=== PATIENT | female | born 1930 | race Caucasian/White ===

== ENCOUNTER 2017-01-11 16:27 | Emergency (ER) | payer OTHER ==
--- NOTE | 2017-01-11 17:52 | PROVIDER DOCUMENTATION ---
HPI-Musculoskeletal Pain/Inj - GENERAL Chief Complaint: Back Pain Stated Complaint: BILA HIP PAIN Time Seen by Provider: 01/11/17 17:13 Source: patient, family - HX OF PRESENT ILLNESS-MUSKULOSKELTAL Nature of Presenting Problem: C/O FALL ON SUNDAY. WAS SEEN BY URGENT CARE WHO DID XRAY OF KNEE AND NOSE WITH NO FX. PRESENTS TODAY WITH C/O "IT FEELS LIKE IT DID WHEN I BROKE MY PELVIS." Quality of Pain: reports: aching Severity in ED: mild Onset/Duration: 4 days ago Timing: still present Modifying Factors: improves with: other (NORCO "HELPS SOME.") Any recent injury?: Yes (FALL) Locality of Occurance: Home Recently seen or treated by another doctor?: Yes (URGENT CARE) - FALL INJURY Location of Pain/Injury: reports: back, pelvis Pain Radiation: reports: no radiation Reason for Fall: reports: tripped Symptoms prior to fall:: reports: none Loss of Consciousness: no loss of consciousness Injury Associated Symptoms: reports: denies symptoms - BACK & NECK PAIN/INJURY Back/Neck Pain Location: reports: T-spine Context / Method of Injury: reports: fall - HIP/PELVIS PAIN/INJURY Hip Pain Location: reports: pelvis (DENIES PAIN TO HIPS AT TIME OF EXAM. C/O PELVIS PAIN) Pain Radiation: reports: no radiation Context / Method of Injury: reports: fall Associated Symptoms: reports: denies symptoms - UPPER EXTREMITY PAIN/INJURY Associated Symptoms: reports: denies symptoms Review of Systems - Adult - REVIEW OF SYSTEMS - ADULT ROS:: ROS per family Constitutional: reports: no symptoms reported Eyes: reports: no symptoms reported Ears, Nose, Mouth & Throat: reports: no symptoms reported Cardiovascular: reports: no symptoms reported Respiratory: reports: no symptoms reported Gastrointestinal: reports: no symptoms reported Genitourinary: reports: no symptoms reported Musculoskeletal: reports: see HPI Integumentary: reports: no symptoms reported Psychiatric: reports: no symptoms reported Endocrine: reports: no symptoms reported Hematologic/Lymphatic: reports: no symptoms reported Allergic/Immunologic: reports: no symptoms reported All Other Systems: Reviewed and Negative Past History - Adult - PAST MEDICAL HISTORY-ADULT Review of Records: reports: Nursing Assessment Review, Medications Reviewed, Social history reviewed & non-contributory. 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, affected eye sight and hearing, right sided), stroke deficits (eye sight and hearing, right side) Endocrine/Immune: reports: thyroid disorder Other Conditions: reports: other cancer (skin) - PRIOR SURGERIES/PROCEDURES Surgical/Procedure History: reports: hysterectomy, orthopedic (extremity) ( rotator cuff repair), other (partial thyroidectomy) - IMMUNIZATION STATUS Childhood Immunizations: UTD Flu Vaccine: UTD - FAMILY HISTORY Family History: reviewed, not pertinent Physical Exam-Injury Related - Physical Exam-Injury Related Initial Vital Signs Reviewed: Yes General Appearance: appears well Immobilization?: negative: backboard, C-collar, applied in ED, applied CONSERVATION OR HERITAGE ARCHITECT Eyes: PERRL/EOMI, pink conjunctivae Head, Ears, Nose, Mouth & Throat: normocephalic/atraumatic, moist mucous membranes Neck: non-tender, full range of motion Respiratory: chest non-tender, lungs clear Cardiovascular: normal peripheral pulses Abdominal Exam: normal bowel sounds, non tender Lymphatic: no adenopathy Back Exam: normal inspection, other (PAIN TO MID T-SPINE) Extremity: normal range of motion, other (PELVIC BONES SLIGHTLY TENDER.) Integumentary: normal color, warm/dry Neurologic: grossly normal Psych/Mental Status: normal mood/affect, normal thought content - Glascow Coma Score Best Eye Response (Kaushal): (4) open spontaneously Best Verbal Response (Recluse): (5) oriented Best Motor Response (Recluse): (6) obeys commands Progress - PLAN OF CARE/RESULTS Progress/Plan/Lab Results: Vital Signs Temp Pulse Resp BP Pulse Ox 01/11/17 16:44 98.1 F 72 18 168/79 98 No Known Allergies Allergy (Verified 01/11/17 17:21) ATORVAstatin [Lipitor] 40 mg PO HS #0 tablet 09/20/16 Hydrocodone/APAP 7.5 mg/325 mg [Labadie-7.5] 1 each PO BID #0 tablet 09/20/16 LISINOpril [Prinivil] 20 mg PO DAILY #0 tablet 09/20/16 Levothyroxine [Synthroid] 88 microgm PO DAILY@07 #0 tablet 09/20/16 Paroxetine [Paxil] 10 mg PO DAILY #0 tablet 09/20/16 Psyllium Husk [Metamucil] 1 each PO DAILY 01/11/17 Laboratory 01/11/17 18:25 Urine Source CLEAN CATCH Urine Color YELLOW Urine Turbidity CLEAR Urine pH 6.5 Ur Specific [place] 1.018 Urine Protein TRACE A Ur Glucose (Stick) NEGATIVE Ur Ketones (Stick) NEGATIVE Urine Blood NEGATIVE Urine Nitrite NEGATIVE Urine Bilirubin NEGATIVE Urobilinogen Dipstick NORMAL Urine Leukocytes NEGATIVE Urine WBC (Auto) <10 Urine RBC (Auto) <10 U Epithel Cells (Auto) <10 Urine Bacteria (Auto) NEGATIVE CT PELVIS W/O NEW FRACTURE. T-SPINE PER DR. LEE NO FRACTURE OR DISPLACEMENT. - XRAY 1 XRAY Study: Thoracic Spine Impression: Normal - CT/MRI 1 CT Study: Pelvis (WNL) Comparison with other Films: no changes Departure - Departure Time of Disposition Order: 20:01 DIAGNOSIS: Bony pelvic pain Back pain Qualifiers: Back pain location: thoracic back pain Chronicity: acute Back pain laterality: bilateral Qualified Code(s): M54.6 - Pain in thoracic spine Disposition: HOME 01 Certified Medical Emergency: Emergent Condition: Stable Additional Instructions: CONTINUE YOUR LORTAB DISCUSSED. USE ICE TO BACK AND PELVIS. FOLLOW UP WITH YOUR PCP FOR FURTHER EVALUATION AND MANAGEMENT. RETURN TO ER FOR ANY WORSENING SYMPTOMS. ED Follow Up Instructions: You have been treated by a care provider in the Emergency Department. These instructions are being provided to you so you can have an understanding of how to care for yourself upon discharge. Upon discharge from the Emergency Department, you are responsible for making arrangements for follow-up care by a physician of your choice. Take all prescribed medications as directed. Return to the Emergency Department immediately for any new or worsening symptoms. You may call the Physician Referral phone number at [phone] to obtain a list of Physicians who are taking new patients.
[2017-01-11 18:33] LABS: URINE CULTURE NEEDED? NO; URINE MICRO REVIEW NEEDED? NO; URINE SOURCE CLEAN CATCH
[2017-01-11 18:45] LABS: BILIRUBIN URINE NEGATIVE (NEGATIVE); BLOOD URINE NEGATIVE (NEGATIVE); COLOR YELLOW; GLUCOSE URINE NEGATIVE (NEGATIVE); LEUKOCYTES URINE NEGATIVE (NEGATIVE); NITRITE URINE NEGATIVE (NEGATIVE); PH URINE 6.5; PROTEIN URINE TRACE mg/dL (NEGATIVE); SP GRAVITY URINE 1.018; TURBIDITY URINE CLEAR (CLEAR); UROBILINOGEN URINE NORMAL (NORMAL)
[2017-01-11 18:48] LABS: UR EPITHELIAL CELLS <10 /HPF (<10); URINE BACTERIA NEGATIVE /HPF; URINE RBC <10 /HPF (<10); URINE WBC <10 /HPF (<10)
[2017-01-11 20:22] VITALS: BP 170/83
--- NOTE | 2017-01-12 07:43 | Diag Imaging Result Document ---
PROCEDURE NAME: PELVIS W/O CONTRAST - 01/11/2017 CT PELVIS: A CT dose reduction protocol was used. COMPARISON: 01/08/2014. FINDINGS: There has been complete healing at the fracture at S1-S2. Stable grade 1 anterolisthesis at L4-L5 with severe disk degeneration. There has been complete healing of the old bilateral pubic ramus fractures. Stable sclerotic degeneration of the sacroiliac joints. IMPRESSION: Extensive chronic changes. No acute process. [facility]
--- NOTE | 2017-01-12 09:34 | Diag Imaging Result Document ---
PROCEDURE NAME: THORACIC SPINE - 01/11/2017 PLAIN RADIOGRAPH OF THE THORACIC SPINE, 3 VIEWS: COMPARISON: None available. FINDINGS: There are very mild endplate degenerative changes at a few thoracic spine levels with tiny ventral marginal osteophytes. The vertebral body heights appear to be maintained. There is no evidence of fracture, subluxation, or intrinsic osseous lesion, otherwise. IMPRESSION: No definite acute osseous abnormality by plain radiograph.
== END 2017-01-11 20:22 | disposition home or self-care (01) ==
LOC: ED 16:27
DX: M54.6 Pain in thoracic spine (principal); M25.552 Pain in left hip; M25.551 Pain in right hip; I25.10 Atherosclerotic heart disease of native coronary artery without angina pectoris; I10 Essential (primary) hypertension; E78.5 Hyperlipidemia, unspecified; I25.2 Old myocardial infarction; E07.9 Disorder of thyroid, unspecified; Z79.899 Other long term (current) drug therapy; I69.398 Other sequelae of cerebral infarction; W01.0XXA Fall on same level from slipping, tripping and stumbling without subsequent striking against object, initial encounter
CPT/HCPCS: 72072; 72192; 81001

== ENCOUNTER 2017-01-23 17:05 | Inpatient (IN) ==
[2017-01-23 17:53] LABS: MANUAL DIFF NEEDED? NO
[2017-01-23 17:55] LABS: ALLEN TEST NO; BE 3.7 mmoll (-3.0-3.0); BLOOD TYPE ARTERIAL; DRAW SITE R BRACHIAL; METHB 1.7 % (0.0-1.5); PCO2(98.6) 43 mmHg (35-45); PO2(98.6) 64 mmHg (60-100); SAMPLE BLOOD; SAO2 95.8 % (95.0-100.0); THB 12.7 g/dL (11.5-17.4); pH(98.6) 7.43 (7.35-7.45)
[2017-01-23 17:56] LABS: MODALITY ROOM AIR
[2017-01-23 18:07] LABS: BASO% 0.5 % (0.0-0.8); EOS% 1.2 % (0.0-10.0); HEMATOCRIT 39.8 % (37.0-47.0); HEMOGLOBIN 12.9 g/dL (12.0-16.0); LYMPH# 1.87 X1000 (1.2-3.4); LYMPH% 23.2 % (20.5-51.1); MCH 29.4 PG (27-31); MCHC 32.4 g/dL (33-37); MCV 90.7 FL (81-99); MONO# 0.64 X1000 (0.11-0.59); MONO% 7.9 % (1.7-9.3); MPV 9.8 FL (7.4-10.4); NEUT% 67.2 % (42.2-75.2); PLT 406 X1000 (130-400); RBC 4.39 XMIL (4.2-5.4)
[2017-01-23 18:15] LABS: AGAP 12; ALBUMIN 3.7 g/dL (3.5-5.0); ALKALINE PHOSPHATASE 147 U/L (32-104); BUN 12 mg/dL (8-22); CALCIUM 9.4 mg/dL (8.8-10.2); CHLORIDE 95 mmol/L (98-107); CK PROFILE 63 U/L (24-173); COSMO 271; GOT 14 U/L (10-30); GPT 12 U/L (10-36); POTASSIUM 3.8 mmol/L (3.5-5.1); SODIUM 134 mmol/L (136-145); TCO2 27 mmol/L (25-35); TOTAL BILIRUBIN 0.21 mg/dL (0.20-1.00); TOTAL PROTEIN 7.1 g/dL (6.3-8.3)
[2017-01-23 18:23] LABS: INR 1.01; PROTIME 10.6 Seconds (9.2-11.7)
[2017-01-23 19:34] LABS: URINE CULTURE NEEDED? NO; URINE MICRO REVIEW NEEDED? NO; URINE SOURCE CATH
[2017-01-23 19:41] LABS: BILIRUBIN URINE NEGATIVE (NEGATIVE); BLOOD URINE NEGATIVE (NEGATIVE); COLOR YELLOW; GLUCOSE URINE NEGATIVE (NEGATIVE); LEUKOCYTES URINE NEGATIVE (NEGATIVE); NITRITE URINE NEGATIVE (NEGATIVE); PH URINE 6.5; PROTEIN URINE NEGATIVE (NEGATIVE); SP GRAVITY URINE 1.015; TURBIDITY URINE CLEAR (CLEAR); UR EPITHELIAL CELLS <10 /HPF (<10); URINE BACTERIA NEGATIVE /HPF; URINE RBC <10 /HPF (<10); URINE WBC <10 /HPF (<10); UROBILINOGEN URINE NORMAL (NORMAL)
[2017-01-23 19:55] LABS: UR AMPHETAMINES QUAL NONE DETECTED (NONE DETECT); UR BARBITUATES QUAL NONE DETECTED (NONE DETECT); UR BENZODIAZEPIN QUAL NONE DETECTED (NONE DETECT); UR CANNABINOIDS QUAL NONE DETECTED (NONE DETECT); UR COCAINE QUAL NONE DETECTED (NONE DETECT); UR METHADONE QUAL NONE DETECTED (NONE DETECT); UR OPIATES QUAL PRESUMPTIVE POSITIVE (NONE DETECT); UR OXYCODONE QUAL NONE DETECTED (NONE DETECT); UR PCP QUAL NONE DETECTED (NONE DETECT)
[2017-01-23] MEDS ORDERED: ASPIRIN PO STA (20:11)
[2017-01-23] MEDS ORDERED: ASPIRIN PO ONE (20:11)
--- NOTE | 2017-01-23 20:52 | PROVIDER DOCUMENTATION ---
This chart was entered by Katrin Lovell Scribe, acting as scribe for Tony Galarza CRNP. HPI-Neurological Disorder - General Chief Complaint: Altered Mental Status Stated Complaint: AMS Time Seen by Provider: 01/23/17 18:45 Source: patient, family Allergies/Adverse Reactions: Patient Allergies Allergy/AdvReac Type Severity Reaction Status Date / Time No Known Allergies Allergy Verified 01/23/17 17:36 Home Medications: Home Medication List Medication Instructions Recorded Confirmed Last Taken Type ATORVAstatin [Lipitor] 40 mg PO HS #0 tablet 09/20/16 01/23/17 01/16/17 07:00 Rx Hydrocodone/APAP 7.5 mg/325 mg 1 each PO BID #0 tablet 09/20/16 01/23/17 07:00 Rx [Novinger-7.5] LISINOpril [Prinivil] 20 mg PO DAILY #0 tablet 09/20/16 01/23/17 01/16/17 07:00 Rx Levothyroxine [Synthroid] 88 microgm PO DAILY@07 #0 tablet 09/20/16 01/23/17 07:00 Rx Paroxetine [Paxil] 10 mg PO DAILY #0 tablet 09/20/16 01/23/17 01/16/17 07:00 Rx Psyllium Husk [Metamucil] 1 each PO DAILY 01/11/17 01/23/17 01/16/17 07:00 History - History of Present Illness-Neuro Nature of Presenting Problem: 86 year old F presents to the ED with a cc of altered mental status. Family states that they found her this afternoon sitting in her chair unkempt which is not normal for her. Family states that she was also talking incoherently and stating that she can not hear nor see. Family states that she had decrease vision due to previous CVAs but was still able to see. Last time family saw pt normal was 1999 last night. Pt is confused and disoriented and does not know day or place but is able to answer other questions appropriately. Severity: reports: moderate Onset/Duration: reports: unsure Timing: reports: still present Approximate time patient was last seen normal?: 20:00 (last night) Character of Altered Mental Status: reports: disoriented, confused Any recent trauma/injury?: reports: none Character of Deficits: reports: vision problem/glaucoma Cognitive Baseline: alert, oriented x3 Gait Baseline: walks without assistance Associated Symptoms: reports: vision changes Similar Symptoms Previously?: No Recently seen or treated by another doctor?: No Review of Systems - Adult - REVIEW OF SYSTEMS - ADULT Constitutional: denies: chills, fever Eyes: reports: other (no vision) Ears, Nose, Mouth & Throat: reports: hearing loss. denies: throat pain, throat swelling Cardiovascular: denies: chest pain, palpitations Respiratory: denies: cough, shortness of breath Gastrointestinal: reports: no symptoms reported Genitourinary: reports: no symptoms reported Musculoskeletal: reports: no symptoms reported Integumentary: reports: no symptoms reported Neurological: denies: dizziness/vertigo, headache/migraines, slurred speech Psychiatric: reports: no symptoms reported Endocrine: reports: no symptoms reported Hematologic/Lymphatic: reports: no symptoms reported Allergic/Immunologic: reports: no symptoms reported All Other Systems: Reviewed and Negative Past History - Adult - PAST MEDICAL HISTORY-ADULT Review of Records: reports: Nursing Assessment Review, Medications Reviewed Major Childhood Illnesses: reports: denies history Cardiovascular: reports: CAD, HTN, hyperlipidemia, [place] Respiratory: reports: denies history Gastrointestinal: reports: denies history Obstetrical/Gynecological: reports: denies history Genitourinary: reports: denies history Musculoskeletal: reports: denies history 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, affected eye sight and hearing, right sided), stroke deficits (eye sight and hearing, right side) Endocrine/Immune: reports: thyroid disorder Other Conditions: reports: other cancer (skin) - PRIOR SURGERIES/PROCEDURES Surgical/Procedure History: reports: hysterectomy, orthopedic (extremity) ( rotator cuff repair), other (partial thyroidectomy) - IMMUNIZATION STATUS Childhood Immunizations: UTD Flu Vaccine: See Nurse Assessment - FAMILY HISTORY Family History: reviewed, not pertinent - SOCIAL HISTORY Smoking: non-smoker Substance Use: none/never Alcohol Use Frequency: never Physical Exam- Neurological - Physical Exam-Neuro Initial Vital Signs Reviewed: Yes General Appearance: alert, other (confused, disoriented, will answer questions appropriately but does not know place or day) Eye Exam: bilateral eye: vision changes (blindness) HENMT: hearing deficit Head Injury: no evidence of injury Respiratory: chest non-tender, lungs clear, normal breath sounds Cardiovascular: normal peripheral pulses, regular rate, rhythm, 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 Exam: hearing deficit (R), hearing deficit (L) Motor/Sensory: no motor deficit, no sensory deficit, no pronator drift Integumentary: normal color, normal turgor, warm/dry Psych/Mental Status: other (confused, disoriented, will answer questions appropriately but does not know place or day) Progress - PLAN OF CARE/RESULTS Progress/Plan/Lab Results: Vital Signs - 8 hr 01/23/17 17:05 Temperature 98.5 F Pulse Rate 64 Respiratory Rate 20 Blood Pressure 145/63 O2 Sat by Pulse Oximetry 96 Laboratory Results - last 24 hr 01/23/17 01/23/17 01/23/17 17:45 17:47 17:47 WBC 8.07 RBC 4.39 Hgb 12.9 Hct 39.8 MCV 90.7 MCH 29.4 MCHC 32.4 L RDW Std Deviation 14.8 H Plt Count 406 H MPV 9.8 Immature Gran % (Auto) 0.0 Neut % (Auto) 67.2 Lymph % (Auto) 23.2 [place] % (Auto) 7.9 Eos % (Auto) 1.2 Baso % (Auto) 0.5 Immature Gran # (Auto) 0.00 Neut # (Auto) 5.42 Lymph # (Auto) 1.87 [place] # (Auto) 0.64 H Eos # (Auto) 0.10 Baso # (Auto) 0.04 PT INR PTT (Actin FS) Specimen Type ARTERIAL Sample Site R BRACHIAL pH 7.43 pCO2 43 pO2 64 HCO3 27.6 H Base Excess 3.7 H Oxyhemoglobin 89.7 L* ABG O2 Sat (Calculated) 16.0 ABG O2 Saturation 95.8 ABG Carboxyhemoglobin 4.60 H ABG Methemoglobin 1.7 H Parsad Test NO A-a O2 Difference 32.0 Total Hemoglobin 12.7 Lactate 1.00 Blood Gas Modality ROOM AIR FiO2 % 21.0 Sodium Potassium Chloride Carbon Dioxide Anion Gap BUN Creatinine Estimated GFR/1.73 m2 BUN/Creatinine Ratio Glucose Calculated Osmolality Calcium Total Bilirubin AST ALT Alkaline Phosphatase Creatine Kinase Troponin T Total Protein Albumin Globulin Albumin/Globulin Ratio Urine Source Urine Color Urine Turbidity Urine pH Ur Specific [place] Urine Protein Ur Glucose (Stick) Ur Ketones (Stick) Urine Blood Urine Nitrite Urine Bilirubin Urobilinogen Dipstick Urine Leukocytes Urine WBC (Auto) Urine RBC (Auto) U Epithel Cells (Auto) Urine Bacteria (Auto) Urine Opiates Screen Ur Oxycodone Screen Ur Methadone, Qual Ur Barbiturates Screen Ur Phencyclidine Scrn Ur Amphetamines Screen U Benzodiazepines Scrn Urine Cocaine Screen U Cannabinoids Screen Plasma/Serum Ethyl Alc 01/23/17 01/23/17 01/23/17 17:47 17:47 17:47 WBC RBC Hgb Hct MCV MCH MCHC RDW Std Deviation Plt Count MPV Immature Gran % (Auto) Neut % (Auto) Lymph % (Auto) [place] % (Auto) Eos % (Auto) Baso % (Auto) Immature Gran # (Auto) Neut # (Auto) Lymph # (Auto) [place] # (Auto) Eos # (Auto) Baso # (Auto) PT 10.6 INR 1.01 PTT (Actin FS) 29.0 Specimen Type Sample Site pH pCO2 pO2 HCO3 Base Excess Oxyhemoglobin ABG O2 Sat (Calculated) ABG O2 Saturation ABG Carboxyhemoglobin ABG Methemoglobin Prasad Test A-a O2 Difference Total Hemoglobin Lactate Blood Gas Modality FiO2 % Sodium 134 L Potassium 3.8 Chloride 95 L Carbon Dioxide 27 Anion Gap 12 BUN 12 Creatinine 0.7 Estimated GFR/1.73 m2 > 60 BUN/Creatinine Ratio 17 Glucose 149 H Calculated Osmolality 271 Calcium 9.4 Total Bilirubin 0.21 AST 14 ALT 12 Alkaline Phosphatase 147 H Creatine Kinase 63 Troponin T < 0.010 Total Protein 7.1 Albumin 3.7 Globulin 3.4 Albumin/Globulin Ratio 1.1 Urine Source Urine Color Urine Turbidity Urine pH Ur Specific [place] Urine Protein Ur Glucose (Stick) Ur Ketones (Stick) Urine Blood Urine Nitrite Urine Bilirubin Urobilinogen Dipstick Urine Leukocytes Urine WBC (Auto) Urine RBC (Auto) U Epithel Cells (Auto) Urine Bacteria (Auto) Urine Opiates Screen Ur Oxycodone Screen Ur Methadone, Qual Ur Barbiturates Screen Ur Phencyclidine Scrn Ur Amphetamines Screen U Benzodiazepines Scrn Urine Cocaine Screen U Cannabinoids Screen Plasma/Serum Ethyl Alc 01/23/17 01/23/17 19:05 19:05 WBC RBC Hgb Hct MCV MCH MCHC RDW Std Deviation Plt Count MPV Immature Gran % (Auto) Neut % (Auto) Lymph % (Auto) [place] % (Auto) Eos % (Auto) Baso % (Auto) Immature Gran # (Auto) Neut # (Auto) Lymph # (Auto) [place] # (Auto) Eos # (Auto) Baso # (Auto) PT INR PTT (Actin FS) Specimen Type Sample Site pH pCO2 pO2 HCO3 Base Excess Oxyhemoglobin ABG O2 Sat (Calculated) ABG O2 Saturation ABG Carboxyhemoglobin ABG Methemoglobin Prasad Test A-a O2 Difference Total Hemoglobin Lactate Blood Gas Modality FiO2 % Sodium Potassium Chloride Carbon Dioxide Anion Gap BUN Creatinine Estimated GFR/1.73 m2 BUN/Creatinine Ratio Glucose Calculated Osmolality Calcium Total Bilirubin AST ALT Alkaline Phosphatase Creatine Kinase Troponin T Total Protein Albumin Globulin Albumin/Globulin Ratio Urine Source CATH Urine Color YELLOW Urine Turbidity CLEAR Urine pH 6.5 Ur Specific [place] 1.015 Urine Protein NEGATIVE Ur Glucose (Stick) NEGATIVE Ur Ketones (Stick) NEGATIVE Urine Blood NEGATIVE Urine Nitrite NEGATIVE Urine Bilirubin NEGATIVE Urobilinogen Dipstick NORMAL Urine Leukocytes NEGATIVE Urine WBC (Auto) <10 Urine RBC (Auto) <10 U Epithel Cells (Auto) <10 Urine Bacteria (Auto) NEGATIVE Urine Opiates Screen PRESUMPTIVE POSITIVE A Ur Oxycodone Screen NONE DETECTED Ur Methadone, Qual NONE DETECTED Ur Barbiturates Screen NONE DETECTED Ur Phencyclidine Scrn NONE DETECTED Ur Amphetamines Screen NONE DETECTED U Benzodiazepines Scrn NONE DETECTED Urine Cocaine Screen NONE DETECTED U Cannabinoids Screen NONE DETECTED Plasma/Serum Ethyl Alc Orders Category Date Time Status Cardiac Monitoring DIRECTED Care 01/23/17 17:38 Active Finger Stick Blood Sugar (ED) DIRECTED Care 01/23/17 17:38 Active Oxygen Therapy- ED Nursing DIRECTED Care 01/23/17 17:38 Active Saline Loc NOW Care 01/23/17 17:38 Active CHEST-PORTABLE [RAD] Stat Exams 01/23/17 17:38 Taken HEAD W/O CONTRAST [CT] Stat Exams 01/23/17 17:39 Taken ABG [RESP] Routine Lab 01/23/17 17:45 Completed ALCOHOL BLOOD Stat Lab 01/23/17 17:47 Completed CBC WITH ELECTRONIC DIFF [HEME] Stat Lab 01/23/17 17:47 Completed CK PROFILE [SP CHEM] Stat Lab 01/23/17 17:47 Completed COMPREHENSIVE METABOLIC PANEL [CHEM] Stat Lab 01/23/17 17:47 Completed LACTATE, PLASMA [CHEM] Stat Lab 01/23/17 19:27 Ordered PROTIME WITH INR [COAG] Stat Lab 01/23/17 17:47 Completed PTT [COAG] Stat Lab 01/23/17 17:47 Completed TROPONIN T Stat Lab 01/23/17 17:47 Completed URINALYSIS W/POSS RFLX CULT [URINALYSIS] Stat Lab 01/23/17 19:05 Completed URINE DRUG SCREEN Stat Lab 01/23/17 19:05 Completed Aspirin Med 01/23/17 20:11 Discontinued 325 mg PO NOW ONE Aspirin Med 01/23/17 20:11 Discontinued 325 mg PO STAT STA Pulse Oximetry Stat Oth 01/23/17 17:38 Active EKG [EKG] Stat Ther 01/23/17 17:38 Ordered Result Diagrams: 01/23/17 17:47 01/23/17 17:47 - EKG 1 Time of EKG reading by physician:: 18:30 EKG Read and Signed by:: Marky Snyder EKG Interpretation (*Must complete 3 of following elements*): Abnormal Rate: 64 Rhythm: NSR QRS: LBB - XRAY 1 XRAY Study: Chest - CT/MRI 1 CT Study: Head Impression: Abnormal (Substantial chronic ischemic changes, including old right occipital infarct; New infarct at left temporal-occipital junction, which may be acute or subacute; No hemorrhage; No mass effect; Mild sphenoid sinusitis noted: Dr. Leong(radiologist)) - CONSULTS/PCP/HOSPITALIST Notification #1 *Consult/PCP/Hospitalist*: Sukumar Time Discussed: 20:21 Consult Disposition: Will see in ED, Admit Departure - Departure Time of Disposition Decision: 20:20 DIAGNOSIS: CVA (cerebral vascular accident) Disposition: ADMITTED INPATIENT 09 Certified Medical Emergency: Emergent Condition: Stable Referrals and Follow-Ups: Mima Maynard CRNP [Primary Care Provider] - Attestation - Physician/ [facility] Attestation Patient care was provided by Advanced Practice Provider:: Yes Advanced Practice Provider:: Tony Galarza Advanced Practice Provider documentation review:: The Mid-level provider documentation, treatment plan and medical decision making was reviewed by the physician who agrees with all treatment and medical decision making by the MLP. - NIH Stroke Scale NIH Type: Initial Evaluation Level of Consciousness: 0-Alert LOC Questions (ask month and age): 2-Both Incorrect LOC Commands (ask to open & close eyes;make a fist, let go): 0-Obeys Both Correctly Best Gaze (horizontal eye movement): 0-Normal Visual (use finger movement, counting or visual threat): 1-Partial Hemianopia Facial Palsy (show teeth or raise eyebrows & close eyes tght: 0-Symmetrical Movement Motor Function-left arm: 0-Normal Motor Function-right arm: 0-Normal Motor Function-left le-Normal Motor Function-right le-Normal Limb Ataxia(knygkd-mphz-prbfam, or heel to munoz): 0-No Ataxia Sensory(pin prick to face,arms,trunk,legs-compare side/side): 0-No Ataxia Best Language(name item/read sentence.Ex-Down to Earth): 0-No Aphasia Dysarthria(Pt read words or say words Ex.Mama,Tip-Top,Thanks: 0-Normal Articulation Extinction and Inattention: 0-Normal This chart was documented by the indicated scribe, (Katrin Lovell, Scribe) and accurately reflects the services I performed and decisions made by me, Tony Galarza CRNP, as attested by the provider's signature.
--- NOTE | 2017-01-23 21:10 | Diag Imaging Result Document ---
PROCEDURE NAME: HEAD W/O CONTRAST - 01/23/2017 STUDY: CT brain without contrast. COMPARISON: Compared to 10/19/2015. No parenchymal hemorrhage. No epidural or subdural hematoma. No subarachnoid hemorrhage. Old right occipital infarct. Prominent microvascular ischemic changes. Likely subacute infarct at the left temporooccipital junction. This was not present on the prior exam. There are several old lacunes. No hydrocephalus. No midline shift. Mucus is found in the left sphenoid sinus. IMPRESSION: 1. No hemorrhage. 2. Acute or subacute infarct at the left temporooccipital junction. 3. Old right occipital infarct with prominent microvascular ischemic changes and scattered old lacunes. 4. Mild left sphenoid sinusitis. A preliminary report was given at 7:01 p.m.
[2017-01-23] MEDS ORDERED: MORPHINE IV ONE (21:17)
[2017-01-23] MEDS ORDERED: APRESOLINE IV PRN (22:35)
[2017-01-23] MEDS ORDERED: ZOFRAN IV PRN (22:35)
[2017-01-23] MEDS: PROTONIX IV SCH (23:02)
[2017-01-23] MEDS: LOVENOX SUBQ SCH (23:05)
[2017-01-23 23:13] LABS: HEMOGLOBIN A1C 6.3 % (4.8-6.0)
--- NOTE | 2017-01-24 03:36 | HISTORY AND PHYSICAL ---
PRIMARY CARE PHYSICIAN: Mima Maynard in [place], [place]. CHIEF COMPLAINT: Stroke-like symptoms. HISTORY OF PRESENT ILLNESS: This is an 86-year-old, female with a past medical history of recurrent stroke according to the family, who was brought to the emergency department because of altered mental status and the family suspecting a stroke. They report last time they had seen her at her baseline was yesterday night. She was able to talk normally and no problems with mental status at all. The family reported that when trying to contact her around 2 p.m. today, because she did not answer the phone, they went to see her. They live close to her and they found her this afternoon sitting in the chair unkempt which is not normal for her according to them. Also, they reported that she was talking incoherently, stating that she cannot hear or see. They report actually that they have a problem with sight secondary to her previous CVA but was able to still see. She has some problems with peripheral vision but at this time, she was complaining that she was not able to see. Patient was confused and disoriented so she was brought to the emergency department here. Report from the ER physician said that this patient was immobile on the right side but upon my examination, she was able to move the right side a little bit, the body, although with some paresis. Patient is going to be admitted to the hospital for further evaluation and treatment. PAST MEDICAL HISTORY: 1. History of stroke x4. 2. Hypertension. 3. Hypothyroidism. 4. History of bilateral pelvic fracture. PAST SURGICAL HISTORY: 1. Thyroidectomy. 2. Hysterectomy. 3. Rotator cuff repair. SOCIAL HISTORY: Patient continues to smoke until now, 1 pack per day. As per family and also previous records, it was documented that this patient was strongly encouraged to stop smoking but she clearly reported that she is not going to even try to stop smoking. Family denies she drinks alcohol or using any illicit drugs. She lives alone and used a walker at home. ALLERGIES: She is not allergic to any medication. REVIEW OF SYSTEMS: It is not possible to obtain because of the mental status of the patient. PHYSICAL EXAMINATION: VITAL SIGNS: Temperature 98.5 degrees, heart rate 64, respiratory rate 20, blood pressure 145/63, O2 saturation 96% on room air. GENERAL: This is a chronically ill appearing and frail, 86-year-old, female lying in bed, in no acute distress. HEENT: Head is normocephalic and atraumatic. Anicteric sclerae and pale conjunctivae. Mucous membranes moist. Pupils equal, round, and reactive to light and accommodation. NECK: Supple. No JVD noted. No carotid bruits. No lymphadenopathy. No thyromegaly. CARDIOVASCULAR: S1 and S2 heard. No murmurs, gallops, or rubs. Regular rate and rhythm. RESPIRATORY: Clear bilaterally to auscultation with some decreased breath sounds. There is no rhonchi or wheezing noted on physical examination. ABDOMEN: Abdomen is soft, a little bit distended but nontender to palpation. Bowel sounds present. No organomegaly. EXTREMITIES: No clubbing, cyanosis, or edema. Peripheral pulses present in both legs. NEUROLOGICAL: Patient is very hard of hearing. She reports that does not see anything at this time. The patient is able to move right side of the body. There is 4/5 motor strength in upper and lower right extremities. The left side is 5/5 in both left upper and lower extremities as well. Gait not assessed. LABORATORY DATA: CBC and BMP are completely unremarkable, as well as urine. UDS is positive for opiates. The head CT showed acute or subacute infarcts in the left temporo-occipital junction with old right occipital infarct with prominent microvascular ischemic changes and scattered old lacunes. ASSESSMENT: 1. Acute temporo-occipital stroke. 2. Hypertension. 3. Hyperlipidemia. 4. Active tobacco abuse. 5. Altered mental status. 6. History of cerebrovascular accident x4. 7. Hypothyroidism. 8. Depression. PLAN: 1. The patient is admitted to the hospital for this new episode of a stroke. I am going to check a lipid panel and also rule out any diabetes on this patient. Blood pressure is high and we are going to allow permissive hypertension for this patient secondary to the stroke. I think definitely the smoking is playing a big role in the history of recurrent strokes and there is a very poor prognosis considering that this patient does not want to quit. To have better visualization of the stroke and to complete the workup, we are going to do an MRI of the brain as well as an MRA of the neck and brain as well, and an echocardiogram too. The patient is going to be started on aspirin. We are going to check a swallow evaluation. Physical therapy will be consulted. Considering that this patient has had 5 strokes, I think this patient is no longer able to live by herself so we have discussed that with the family. We are going to put a consult for social work specialist for prison placement. 2. For hyperlipidemia, we will going to check a lipid panel tomorrow. 3. For hypothyroidism, we are going to check a TSH. 4. For depression, we are going to continue with home medications. 5. Further recommendations to follow according to the clinical situation of the patient. cc: Xu Nickerson MD MTDD
[2017-01-24 06:48] LABS: MANUAL DIFF NEEDED? NO
[2017-01-24 06:54] LABS: BASO% 0.5 % (0.0-0.8); EOS# 0.16 X1000 (0.0-0.7); EOS% 1.5 % (0.0-10.0); HEMATOCRIT 38.7 % (37.0-47.0); HEMOGLOBIN 12.4 g/dL (12.0-16.0); IMM GRAN# 0.02 X1000 (0.0-0.04); IMM GRAN% 0.2 % (0.0-0.5); LYMPH# 2.27 X1000 (1.2-3.4); LYMPH% 21.2 % (20.5-51.1); MCH 29.3 PG (27-31); MCV 91.5 FL (81-99); MONO% 7.5 % (1.7-9.3); MPV 9.7 FL (7.4-10.4); NEUT% 69.1 % (42.2-75.2); PLT 364 X1000 (130-400); RBC 4.23 XMIL (4.2-5.4)
[2017-01-24 07:35] LABS: AGAP 14; BUN 11 mg/dL (8-22); CALCIUM 8.7 mg/dL (8.8-10.2); CHLORIDE 97 mmol/L (98-107); COSMO 267; HDL 34 mg/dL (45-65); LDL 60 mg/dL; POTASSIUM 4.2 mmol/L (3.5-5.1); SODIUM 134 mmol/L (136-145); TCO2 23 mmol/L (25-35); TRIGLYCERIDES 153 mg/dL (35-135); VLDL 31 mg/dL
--- NOTE | 2017-01-24 07:55 | Diag Imaging Result Document ---
PROCEDURE NAME: CHEST-PORTABLE - 01/23/2017 PORTABLE CHEST: COMPARISON: 10/19/2015. FINDINGS: Poor inspiratory effort. The heart is not enlarged. The vessels are not distended. No consolidation. No pleural effusions identified. IMPRESSION: Negative chest.
--- NOTE | 2017-01-24 09:40 | Diag Imaging Result Document ---
PROCEDURE NAME: MRA NECK W/CONT - 01/24/2017 MR ANGIOGRAPHY OF THE NECK. MIP IMAGES WERE OBTAINED. FINDINGS: There is normal filling of the left common carotid artery. No stenosis. Mild stenosis in the proximal internal carotid artery at the bulb of less than 40%. Normal flow in the internal carotid artery. There is normal flow in the right common carotid artery. No stenosis. Mild stenosis in the bulb of less than 40%. No other abnormality to the internal carotid artery. The right vertebral artery is dominant compared to the left. There is flow within both vertebral arteries. Normal basilar artery. IMPRESSION: Mild stenoses within each internal carotid artery bulb of less than 40%.
--- NOTE | 2017-01-24 09:44 | Diag Imaging Result Document ---
PROCEDURE NAME: MRA BRAIN W/O CONTRAST - 01/24/2017 MR ANGIOGRAPHY OF THE BLACKFEET OF [place]. MIP IMAGES WERE OBTAINED. FINDINGS: There is normal flow within each distal internal carotid artery. Normal filling of each anterior cerebral artery and each middle cerebral artery. Artifact versus stenosis in the proximal left middle cerebral artery. No aneurysms. There is normal flow in the basilar artery. Normal filling of each posterior cerebral artery. IMPRESSION: Questionable stenosis in the proximal left middle cerebral artery, but no other abnormality.
--- NOTE | 2017-01-24 09:46 | Diag Imaging Result Document ---
PROCEDURE NAME: MRI BRAIN W W/O CONTRAST - 01/24/2017 MRI OF THE BRAIN WITH AND WITHOUT GADOLINIUM: FINDINGS: There is extensive encephalomalacia in the posterior temporal and occipital lobe on the right. There is abnormal decreased T1 and increased T2-weighted signal intensity in gyri in the posterior temporal lobe on the left side which were not present on 11/27/2014, and which are associated with restricted diffusion consistent with a subacute or acute infarct. There is no evidence of bleed or abnormal extra-axial fluid collection and, otherwise, the appearance of the brain has not changed significantly since the previous study. There is no evidence of abnormal gadolinium enhancement. IMPRESSION: 1. Acute infarct in the left temporal lobe. 2. Chronic ischemic changes elsewhere.
--- NOTE | 2017-01-24 10:44 | CONSULTATION ---
DATE OF CONSULTATION: 01/24/2017 HISTORY OF PRESENT ILLNESS: Mr. Burnette is 86 years old and it looks like she has had another stroke. History from the patient is that she noticed a sudden complete loss of vision yesterday. Her report to me now is that she is not sure there was right-sided weakness then but the emergency room record shows there clearly was right hemiparesis when she presented. She reports no definite recovery of vision today. She had a little bit of a headache but that was never major. She believes there was never altered consciousness or altered awareness. She has extensive past history of stroke. Previous strokes have caused predominantly left hemianopia. She had first stroke event 17 years ago, causing loss of vision to the left. She had subsequent similar episodes. 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 Workup this admission includes brain MRI this morning reported to show evidence of acute left temporal infarction. There is evidence of the old right posterior hemisphere encephalomalacia consistent with her prior stroke events. Vital sign record here shows blood pressure systolic 120s to 170s. Heart rate has ranged 60s to 70s. She has been afebrile. Lab work included urine drug screen positive for opiates, consistent with her home medication list including hydrocodone. She has had mildly elevated blood sugars and A1c is 6.3%. Past history is remarkable for hypertension, dyslipidemia, hypothyroidism, previous strokes as above. She has chronic gait difficulty. On exam, she is awake, alert, attentive. She is quite hard of hearing but communicated with me very well when she could hear and understand me. Speech is very minimally dysarthric but easily understood. Language function is intact on brief bedside testing. I did not test her cognitive function. She reports hand motion vision in the right visual field and no definite vision in the left visual field. She was able to recognize bright light. The pupils react to light, a little bit more briskly on the left. Facial motility is diminished bilaterally. She has good power in the left limbs. Strength is difficult to shredded filler hopper feeder in the right limbs with her limited effort but I could overcome the right deltoid grading 4/5. Tone is equal in the limbs. I did not ask her to stand or walk. Head is unremarkable. Neck is supple without meningismus. IMPRESSION: 1. Sudden onset of right-sided vision loss, mild right hemiparesis, MRI evidence of acute dominant left hemisphere infarction but no definite language deficit. She has risk factors for cerebrovascular ischemic problems as above. Prognosis is limited in light of her age and multiple previous strokes but I believe this may be first definite left hemisphere infarction and with timeframe less than 24 hours now, we can hope for some spontaneous improvement. She has workup in progress. Brain MRA raised the question of left middle cerebral stenosis but that does not appear to be marked. Cervical MRA was not remarkable. Echocardiogram was just completed. I do not have any suggestion for urgent workup or other urgent intervention. We need to treat blood pressure cautiously, treat lipids and blood sugar aggressively, provide deep venous thrombosis prophylaxis, and follow her clinically. 2. Previous strokes with chronic left hemianopia. I do not see any definite change there. 3. Chronic unsteady gait. Loss of vision will certainly make that a bigger problem. 4. I wonder about her baseline level of cognitive function. If that has declined, we might consider cholinesterase inhibitor trial, not urgent. Thanks for asking me to see Ms. Burnette. cc: MD DIMAS Tai III
[2017-01-24] MEDS: NORCO-7.5 PO SCH ×3 (12:05→22:29)
[2017-01-24] MEDS: METAMUCIL PO SCH ×2 (13:03)
[2017-01-24] MEDS: ASPIRIN PO SCH (13:03)
[2017-01-24] MEDS: SYNTHROID PO SCH (13:03)
[2017-01-24] MEDS: PAXIL PO SCH (13:03)
--- NOTE | 2017-01-24 14:27 | PROGRESS NOTE ---
DATE: 01/24/2017 SUBJECTIVE: This patient is resting comfortably on the bed. She has no complaints at this moment. She is sleepy but arousable. She can talk but she is not oriented. She is able to move all 4 extremities. I did not ask her to walk. OBJECTIVE: Vital Signs: Temperature 98.9 degrees, pulse 57, blood pressure 190/81, oxygen saturation 100% on 2 L of nasal cannula. HEENT: Head normocephalic. No trauma. PERRLA. Neck: Supple. No JVD. No masses. Central trachea. Chest: Clear to auscultation. No wheezing. No rales. Cardiovascular: RRR. No murmurs. Abdomen: Soft, nontender, nondistended. No hepatosplenomegaly. Extremities: Generalized weakness. The right side is more weak compared with the left side. Neurological: She is sleepy but arousable. She is not oriented. She moves all 4 extremities. LABORATORY: WBC 10.7, hemoglobin 12.4, hematocrit 38.7, platelets 364,000. Sodium 134, potassium 4.2, chloride 97, bicarbonate 23, BUN 11, creatinine 0.7, glucose 91, calcium 8.7. ASSESSMENT AND PLAN: 1. Acute left temporal lobe infarct. This patient looks stable at this moment. She has had previous strokes and risk factors. Apparently she is still smoking. I am not sure if she wants to quit. For now we are going to focus on her treatment. At home she is on lisinopril to treat the blood pressure. The hemoglobin A1c is 6.3 so she has prediabetes and the lipid panel, the triglyceride is 153, cholesterol 125, LDL 60, HDL 34. The TSH is normal. Since she received IV contrast today I will hold the lisinopril to avoid acute kidney injury but I am going to start this patient on hydralazine. The blood pressure has been around 190. I will continue with the aspirin and I will start this patient on Lipitor. 2. Hypertension. As above. 3. Hyperlipidemia. I will start this patient on Lipitor. 4. Active tobacco abuse. She is on a nicotine patch. I am not quite sure that this patient is going to quit smoking. I highly advised this patient against smoking and I will continue with daily cessation education. 5. Altered mental status. This patient is sleepy but arousable but she is not oriented at this moment. 6. History of cerebrovascular accident x4. 7. Hypothyroidism. Continue with the same management. 8. Depression. Aware. CRITICAL CARE TIME: 35 minutes. cc: Gureo Scott MD
[2017-01-24] MEDS: NS 1,000 ML IV SCH (22:27)
[2017-01-24] MEDS: APRESOLINE PO SCH (22:29)
[2017-01-24] MEDS: SODIUM CHLORIDE 0.9% INJ SCH (22:30)
[2017-01-24] MEDS: PROTONIX IV SCH (22:30)
[2017-01-24] MEDS: LOVENOX SUBQ SCH (22:30)
[2017-01-24] MEDS: LIPITOR PO SCH (22:31)
[2017-01-25 05:16] LABS: MANUAL DIFF NEEDED? NO
[2017-01-25 05:20] LABS: BASO% 0.4 % (0.0-0.8); EOS# 0.12 X1000 (0.0-0.7); EOS% 1.3 % (0.0-10.0); HEMATOCRIT 35.9 % (37.0-47.0); HEMOGLOBIN 11.5 g/dL (12.0-16.0); LYMPH# 2.35 X1000 (1.2-3.4); LYMPH% 26.4 % (20.5-51.1); MCH 29.1 PG (27-31); MCV 90.9 FL (81-99); MONO% 7.9 % (1.7-9.3); PLT 374 X1000 (130-400); RBC 3.95 XMIL (4.2-5.4)
[2017-01-25 05:48] LABS: AGAP 12; BUN 13 mg/dL (8-22); CALCIUM 8.2 mg/dL (8.8-10.2); CHLORIDE 99 mmol/L (98-107); COSMO 274; POTASSIUM 3.9 mmol/L (3.5-5.1); SODIUM 137 mmol/L (136-145); TCO2 26 mmol/L (25-35)
--- NOTE | 2017-01-25 09:01 | ECHO REPORT ---
ORDER DATE: 01/23/2017 INTERPRETING PHYSICIAN: Dr. Leon REQUESTING PHYSICIAN: CLINICAL INDICATIONS: 86-year-old female with recurrent stroke. M-MODE MEASUREMENTS: Right ventricle: 2.0 cm. Left ventricle end diastole: 3.1 cm. Left ventricle end systole: 1.8 cm. Posterior wall: 1.1 cm. Interventricular septum: 1.3 cm. Left atrium: 3.6 cm. Aortic root: 2.9 cm. SUMMARY OF 2-DIMENSIONAL IMAGIN. Left ventricular function is normal. Ejection fraction is estimated at 65%. No wall motion abnormality is noted. 2. Right ventricular function was normal. 3. Mitral valve showed mild degree of regurgitation. 4. Pulse wave Doppler of mitral inflow shows mild reversal of the E and A wave. 5. Tissue Doppler of septal and lateral mitral annulus averages 5 cm. 6. Pulse wave Doppler of pulmonary venous flow is normal. 7. There is impaired left ventricular relaxation. 8. Tricuspid valve looks normal with mild degree of regurgitation. 9. Inferior vena cava is not dilated. 10.Pulmonary pressure is estimated at 32 mmHg. 11.Pulmonic valve looks normal. Color flow mapping unremarkable. 12.Aortic valve looks sclerotic. The maximum gradient is 18 mm, mean gradient is 9 mm. 13.There is no pericardial effusion, masses or thrombus. SUMMARY: In summary, this study shows: 1. Normal left ventricular systolic function. 2. Sclerosis of aortic valve without stenosis. 3. Impaired left ventricular relaxation. 4. Pulmonary systolic pressure 32 mmHg. Clinical correction recommended. cc: MD Xu Dunn MD
--- NOTE | 2017-01-25 09:13 | PROGRESS NOTE ---
DATE: 01/25/2017 Ms. Burnette is awake, alert, attentive. She communicated with me a little bit better today. I believe that she does have some dysphasia, more receptive than expressive. She was not able to count fingers in the right visual field but she did recognize hand motion, a little bit better in the right visual field today than yesterday. She is not able to follow instructions precisely which makes formal motor testing difficult. She used her right arm and leg purposefully. There may be slight right hemiparesis, but I could not document that with certainty. I reviewed the workup results. I do not have any suggestion for new workup or management. Thanks for asking me to see Ms. Burnette. cc: Mu Obando III, MD MTDEverett
--- NOTE | 2017-01-25 09:23 | PROGRESS NOTE ---
DATE: 01/25/2017 SUBJECTIVE: This is an 86-year-old who is followed by Dr. Mima Maynard in [place], [place], with past medical history of recurrent stroke. According to family, was brought to the emergency room department because of altered mental status, and we suspected stroke. Last time they had seen her at her baseline was the day before, was able to talk normally, no problems, with normal mental status. The family reported that when trying to contact her around 2 p.m. on 01/23/2017, because she did not answer the phone, they went to see her. They live close to her. They found her sitting in a chair, unkempt and not normal for her, according to them. Reported that she was talking incoherently, stating that she cannot hear or see. They report actually that they had problem with her eyesight and also with her hearing, but her eyesight was due to a previous CVA, but was able to still see some. She had some problems with peripheral vision, but this time, she was complaining that she was not able to see at all. The patient was confused and disoriented, and she was brought to the emergency room department. Report from the ER physician said that the patient was immobile on the right side, but upon exam later on, she was able to move her right side a little bit, although there was some paresis noted. PAST MEDICAL HISTORY: 1. History of stroke x4. 2. Hypertension. 3. Hypothyroidism. 4. History of bilateral pelvic fractures. PAST SURGICAL HISTORY: Thyroidectomy, hysterectomy, rotator cuff repair. IMAGING: CT of the head showed acute or subacute infarct in the left temporal occipital junction with old right occipital infarct, prominent microvascular ischemic changes, scattered old lacunar. OBJECTIVE: General: This morning, she is awake and alert, asked that I turn the light on, and she says she cannot see very well. She is hard of hearing, but no discomfort. No trouble breathing. Vital signs: Temperature 97.8 degrees, pulse 67, respirations 12, blood pressure 161/62. HEENT: Pupils are equal and round. CVP less than 6 cm. Lungs: Clear in all lung romero. Cardiovascular: Regular rhythm and rate without murmur or S3. Abdomen: Soft. Skin is warm and dry. O2 sat is 96%. Her I's and O's, urine output about 200 mL. ASSESSMENT AND PLAN: 1. Acute left temporal lobe infarct. The patient appears to be doing a little better. She had previous strokes and has multiple risk factors, still smoking. Did discuss the importance of quitting tobacco. She is on lisinopril for blood pressure. Hemoglobin A1c was 6.3, and lipid panel showed triglyceride 153, cholesterol 125, LDL 60, HDL 34. TSH was normal. They held the lisinopril yesterday, and the patient was started on hydralazine. Blood pressure systolic was around 190s. 2. Hypertension. Blood pressures have come down nicely. Do not want to drop her blood pressure too much in this setting. Continue present regimen. 3. Hyperlipidemia. She is started on Lipitor. 4. History of tobacco use, on a nicotine patch, and have counseled her about the importance of stopping smoking. 5. Altered mental status, which seems to have improved. She is oriented at the present time. 6. History of cerebrovascular accident x4, this will be her fifth I think. 7. Hypothyroidism. Continue with her same Synthroid. 8. Depression. Aware. REVIEW OF HER ORDERS: I do not see anything to change at this point. She is on Paxil 10 mg a day. She is taking some Metamucil. She is getting IV fluids at 50 mL an hour, Synthroid 88 mcg daily. She is on hydralazine 10 mg t.i.d., Lipitor 40 mg a day, aspirin 325 mg a day. LABORATORY DATA: Review of her labs from this morning: White count 8910, hematocrit 35, platelet count 374,000. Sodium 137, potassium 3.9, chloride 99, BUN 13, creatinine 0.7, so renal function appears to be doing well. PLAN: Dr. Obando has seen the patient. MRI/MRA of the brain done. She has sudden right-sided vision loss, mid right hemiparesis, MRI evidence of acute dominant left hemisphere infarction with no definite language deficit. She has risk factors for cerebrovascular ischemia, and it looks like we are getting some spontaneous improvement. MRA raised the question of left middle cerebral stenosis, but does not appear to be marked. Cervical MRA was unremarkable. Will review echocardiogram. Treating blood pressure cautiously. cc: Prasad Fontanez MD
[2017-01-25] MEDS: SYNTHROID PO SCH (10:01)
[2017-01-25] MEDS: PAXIL PO SCH (10:01)
[2017-01-25] MEDS: APRESOLINE PO SCH ×3 (10:01→17:27)
[2017-01-25] MEDS: NORCO-7.5 PO SCH ×3 (10:01→17:26)
[2017-01-25] MEDS: METAMUCIL PO SCH ×2 (10:01)
[2017-01-25] MEDS: ASPIRIN PO SCH (10:02)
[2017-01-25] MEDS: NS 1,000 ML IV SCH (15:42)
[2017-01-25] MEDS: SODIUM CHLORIDE 0.9% INJ SCH (20:57)
[2017-01-25] MEDS: PROTONIX IV SCH ×2 (20:57→23:22)
[2017-01-25] MEDS: LOVENOX SUBQ SCH ×2 (20:57→23:22)
[2017-01-25] MEDS: LIPITOR PO SCH (21:16)
[2017-01-26] MEDS: NORCO-7.5 PO SCH ×2 (04:58→13:15)
[2017-01-26 05:34] LABS: MANUAL DIFF NEEDED? NO
[2017-01-26 05:39] LABS: BASO% 0.5 % (0.0-0.8); EOS# 0.13 X1000 (0.0-0.7); EOS% 1.3 % (0.0-10.0); HEMATOCRIT 36.7 % (37.0-47.0); HEMOGLOBIN 11.8 g/dL (12.0-16.0); LYMPH# 1.96 X1000 (1.2-3.4); LYMPH% 18.9 % (20.5-51.1); MCH 29.2 PG (27-31); MCHC 32.2 g/dL (33-37); MCV 90.8 FL (81-99); MONO# 0.75 X1000 (0.11-0.59); MONO% 7.2 % (1.7-9.3); MPV 10.4 FL (7.4-10.4); NEUT% 72.1 % (42.2-75.2); PLT 356 X1000 (130-400); RBC 4.04 XMIL (4.2-5.4)
[2017-01-26 05:56] LABS: AGAP 10; BUN 9 mg/dL (8-22); CALCIUM 8.3 mg/dL (8.8-10.2); CHLORIDE 103 mmol/L (98-107); COSMO 274; POTASSIUM 4.1 mmol/L (3.5-5.1); SODIUM 138 mmol/L (136-145); TCO2 25 mmol/L (25-35)
[2017-01-26] MEDS: SYNTHROID PO SCH (06:29)
[2017-01-26] MEDS: ASPIRIN PO SCH (09:47)
[2017-01-26] MEDS: PAXIL PO SCH (09:47)
[2017-01-26] MEDS: METAMUCIL PO SCH ×2 (09:47)
[2017-01-26] MEDS: APRESOLINE PO SCH ×2 (09:47→13:15)
--- NOTE | 2017-01-26 10:05 | DISCHARGE SUMMARY ---
ADMISSION DATE: 01/23/2017 DISCHARGE DATE: 01/26/2017 DISPOSITION: The patient is discharged to go to rehab at [facility]. PRIMARY CARE PROVIDER: She is followed by KARLA Cleveland, in [place], [place]. HISTORY OF PRESENT ILLNESS: She presented with stroke-like symptoms on 01/23/2017. This is an 86-year-old with a past medical history of recent stroke, according to the family, who was brought in to the emergency department with altered mental status. The family suspected another stroke. They report the last time they had seen her she was at baseline the day before, able to talk normally, and no problems with mental status. They report that they were trying to contact her at about 2:00 p.m. on the day of admission, but she did not answer the phone. They went to see her. They live close to her. They found her sitting in her chair unkempt, and it is not normal for her, according to them. They reported that she was talking incoherently, stating she cannot hear or see. They report actually that she had a problem with her sight secondary to previous CVA, but was still able to see a little bit. She had some problems with peripheral vision, but at this time she was complaining she was not able to see at all. The patient was confused and disoriented, and she was brought to the emergency department. Report from ER physician said that the patient was immobile on the right side, but upon examination was able to move the right side a little better. PAST MEDICAL HISTORY: 1. History of stroke x4. 2. Hypertension. 3. Hypothyroidism. 4. History of bilateral pelvic fractures. PAST SURGICAL HISTORY: 1. Thyroidectomy. 2. Hysterectomy. 3. Rotator cuff repair in the past. SOCIAL HISTORY: The patient apparently smokes 1 pack per day. She had been strongly encouraged to stop smoking in the past and has tried to stop. She does not drank any alcohol. HOSPITAL COURSE: The patient was admitted with a new episode of stroke. Dr. Obando was consulted, and she received a CT of her head without contrast. No hemorrhage. Acute and subacute infarct in the left temporal occipital junction, old right occipital infarct with prominent microvascular ischemic changes and scattered old lacunas, and mild left sphenoid sinusitis. MRA of the brain, questionable stenosis of the proximal left middle cerebral artery, but no other abnormality. Brain MRI revealed acute infarct in the left temporal lobe. Chronic ischemic changes elsewhere. The MRA of the neck showed mild stenosis with each internal carotid artery bulb of less than 40%. It was felt she had a new onset CVA. She has the sudden onset of right-sided vision loss, mild right hemiparesis. MRI showed dominant left hemisphere infarction, and she seemed to have some language deficit as well, trouble finding words. Her right-sided strength seemed to improve. Really on maximum therapy, nothing new to add. She has had several previous strokes and chronic left hemianopsia, and a chronic unsteady gait. She is unable to raise herself up and to stand and to walk. She will need some more aggressive physical therapy and would like to go to rehab. So, the plan is to send her to rehab on 01/26/2017. DISCHARGE MEDICATIONS: Her discharge medications will be Arma 7.5 every 8 hours p.r.n., aspirin 325 mg a day, Lipitor 40 mg a day, Apresoline 10 mg t.i.d., Synthroid 88 mcg daily, Paxil 10 mg a day, Metamucil 1 scoop daily. We will add Plavix to her regimen 75 mg daily. Blood pressures were running in the 160s and 180s, but at times would dip down to 100. We did hold her lisinopril. Renal function looks good. Her sodium looks good. I think I will put her back on her Prinivil 10 mg twice a day. cc: Prasad Fontanez MD
[2017-01-26 11:25] VITALS: BP 164/74
--- NOTE | 2017-01-26 12:54 | PROGRESS NOTE ---
DATE: 01/26/2017 Ms. Burnette is awake, alert, attentive. She is even more bright today than yesterday. Speech is easily understood. She still had some language errors with trouble finding words and trouble following commands. She can definitely count fingers inconsistently at the edge of her right visual field, which is an improvement. I do not see any new motor deficit today. I do not have any new suggestion for management. She told me that she plans to go to rehab and I think that is a good idea. Thanks for asking me to see Ms. Burnette. cc: MD DIMAS Tai III
== END 2017-01-26 14:00 ==
LOC: ED 17:05 → EDIPHOLD 22:11 → SUATTDRO 22:11 → 3S 01-24 10:01
PROVIDERS: ATTEND Emergency Medicine

== ENCOUNTER 2017-04-26 12:30 | Inpatient (IN) ==
[2017-04-26] MEDS ORDERED: ASPIRIN PO STA (12:38)
[2017-04-26 12:52] LABS: MANUAL DIFF NEEDED? NO
[2017-04-26 12:55] LABS: BASO% 0.7 % (0.0-0.8); EOS# 0.18 X1000 (0.0-0.7); HEMATOCRIT 43.2 % (37.0-47.0); HEMOGLOBIN 13.9 g/dL (12.0-16.0); LYMPH% 25.6 % (20.5-51.1); MCH 29.8 PG (27-31); MCHC 32.2 g/dL (33-37); MCV 92.7 FL (81-99); MONO# 0.65 X1000 (0.11-0.59); MONO% 7.2 % (1.7-9.3); NEUT% 64.5 % (42.2-75.2); PLT 368 X1000 (130-400); RBC 4.66 XMIL (4.2-5.4)
--- NOTE | 2017-04-26 13:06 | Diag Imaging Result Doc PS360 ---
EXAM: CHEST-2 VIEWS HISTORY: CP TECHNIQUE: Two views of the chest COMMENT: There are prominent bilateral fat pads. The inspiration is slightly better than on 01/23/2017. Compared to 10/19/2015 there has been no significant change. IMPRESSION: No evidence of acute disease. Electronically signed by Miguel Mcadams 04/26/2017 1:04 PM
[2017-04-26 13:10] LABS: INR 0.98; PROTIME 10.3 Seconds (9.2-11.7); PTT 27.8 Seconds (22.0-36.0)
[2017-04-26 13:17] LABS: AGAP 12; ALBUMIN 4.1 g/dL (3.5-5.0); ALKALINE PHOSPHATASE 131 U/L (32-104); BUN 11 mg/dL (8-22); CALCIUM 9.4 mg/dL (8.8-10.2); CHLORIDE 97 mmol/L (98-107); CK PROFILE 87 U/L (24-173); COSMO 270; GOT 29 U/L (10-30); GPT 27 U/L (10-36); MAGNESIUM 2.1 mg/dL (1.5-2.7); POTASSIUM 4.3 mmol/L (3.5-5.1); SODIUM 136 mmol/L (136-145); TCO2 27 mmol/L (25-35); TOTAL BILIRUBIN 0.21 mg/dL (0.20-1.00); TOTAL PROTEIN 7.7 g/dL (6.3-8.3)
--- NOTE | 2017-04-26 14:09 | Diag Imaging Result Doc PS360 ---
EXAM: ANGIOGRAM/PULMONARY ARTERIES INDICATION: chest pain sob elevated ddimer TECHNIQUE: Dose reduction protocol was used. COMPARISON: None. FINDINGS: There is motion artifact at the lung bases, which may obscure small distal pulmonary emboli. However, there are no discrete filling defect to indicate pulmonary embolism. 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 On the coronal reformatted images, it measures approximately 1.9 cm in diameter. There are several ulcerated plaques involving the aortic arch. The heart is at least mildly prominent. There is a prominent hiatal hernia. There is minimal subsegmental atelectasis at the lung bases. There is no pleural fluid collection and no pneumothorax. IMPRESSION: 1.Prominent hiatal hernia. 2.No evidence of pulmonary embolism. 3.At least mild cardiomegaly. 4.Mild subsegmental atelectasis at the lung bases. 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 Electronically signed by Hernan Quevedo 04/26/2017 2:07 PM
--- NOTE | 2017-04-26 16:35 | PROVIDER DOCUMENTATION ---
This chart was entered by Breana Draper Scribe, acting as scribe for Mirtha Boucher MD. HPI-Chest Pain - General Chief Complaint: Chest Pain Stated Complaint: CP Time Seen by Provider: 04/26/17 12:48 Source: patient Allergies/Adverse Reactions: Patient Allergies Allergy/AdvReac Type Severity Reaction Status Date / Time No Known Allergies Allergy Verified 04/26/17 12:52 Home Medications: Home Medication List Medication Instructions Recorded Confirmed Last Taken Type ATORVAstatin [Lipitor] 40 mg PO HS #0 tablet 09/20/16 04/26/17 04/11/17 Rx LISINOpril [Prinivil] 20 mg PO DAILY #0 tablet 09/20/16 04/26/17 04/11/17 Rx Levothyroxine [Synthroid] 88 microgm PO DAILY@07 #0 tablet 09/20/16 04/26/17 Rx Paroxetine [Paxil] 10 mg PO DAILY #0 tablet 09/20/16 04/26/17 04/11/17 Rx Psyllium Husk [Metamucil] 1 each PO DAILY 01/11/17 04/26/17 04/11/17 History Aspirin 325 mg PO DAILY tablet 01/26/17 04/26/17 04/11/17 Rx Clopidogrel [Plavix] 75 mg PO DAILY #30 tablet 01/26/17 04/26/17 04/11/17 Rx Hydralazine [Apresoline] 10 mg PO TID tablet 01/26/17 04/26/17 04/11/17 Rx - History of Present Illness- Nature of Presenting Problem: 86 y/o F presents to ED cc of CP. Pt was brought in by EMS. Pt states she was sitting on couch when she had an onset of chest pain radiating to R arm and up R side of neck. Pt does report some nausea but denies any SOB. Chest pain onset at 1100am. Pt was given Nitro and morphine by EMS with some relief, but the pain is not gone. Pt denies any cough/ fever lately. EMS reports diaphoresis. Pt is alert and oriented. Location: reports: substernal Chest Pain Radiation: reports: neck (R), shoulders (R) Quality of Pain: reports: aching, pressure Severity in ED: mild Onset/Duration: just prior to arrival (1100am) Timing: still present Context/Activities at Onset: reports: light activity Associated Symptoms: denies: abdominal pain, dizziness, fever/chills, heartburn , nausea, shortness of breath, vomiting Nitro Today/Relief: provided by EMS Aspirin Treatment Today: provided by EMS Similar Symptoms Previously?: No Recently Seen Here or By Another Healthcare Provider: No Review of Systems - Adult - REVIEW OF SYSTEMS - ADULT Constitutional: denies: chills, fever Eyes: denies: blurred vision, double vision Ears, Nose, Mouth & Throat: denies: ear pain, nose pain, loose teeth, throat pain Cardiovascular: reports: chest pain. denies: palpitations Respiratory: denies: cough, pleurisy, shortness of breath, wheezing Gastrointestinal: reports: nausea. denies: abdominal pain, diarrhea, frequent heartburn, rectal bleeding, vomiting Genitourinary: denies: dysuria, hematuria, hesitency, urgency Musculoskeletal: denies: bone pain, back pain, joint pain, joint swelling Neurological: denies: dizziness/vertigo, headache/migraines, seizure, slurred speech Past History - Adult - PAST MEDICAL HISTORY-ADULT Review of Records: reports: Old Records Reviewed, Nursing Assessment Review Major Childhood Illnesses: reports: denies history Cardiovascular: reports: CAD, HTN, hyperlipidemia, VT Respiratory: reports: denies history Gastrointestinal: reports: denies history Obstetrical/Gynecological: reports: denies history Genitourinary: reports: denies history Musculoskeletal: reports: denies history 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, affected eye sight and hearing, right sided), stroke deficits (eye sight and hearing, right side) Endocrine/Immune: reports: thyroid disorder Other Conditions: reports: other cancer (skin) - PRIOR SURGERIES/PROCEDURES Surgical/Procedure History: reports: hysterectomy, orthopedic (extremity) ( rotator cuff repair), other (partial thyroidectomy) - IMMUNIZATION STATUS Childhood Immunizations: UTD Flu Vaccine: See Nurse Assessment - FAMILY HISTORY Family History: reviewed, not pertinent - SOCIAL HISTORY Smoking: quit less than 1 year Substance Use: denies Physical Exam-General - PHYSICAL EXAM-ADULT Initial Vital Signs Reviewed: Yes - CONSTITUTIONAL General Appearance: appears well, alert - EYES Eyes: PERRL/EOMI, pink conjunctivae - HEAD, EARS, NOSE, MOUTH & THROAT HENMT: moist mucous membranes, normal ENT inspection - NECK Neck: non-tender, full range of motion - RESPIRATORY Respiratory: chest non-tender, crackles (R base) - CARDIOVASCULAR Cardiovascular: normal peripheral pulses, regular rate, rhythm, no edema - GASTROINTESTINAL (ABDOMEN) Abdominal Exam: normal bowel sounds, non tender, soft - MUSCULOSKELETAL Back Exam: normal inspection, no CVA tenderness, no vertebral tenderness Extremity: normal range of motion, non-tender - SKIN Integumentary: normal color, normal turgor, diaphoresis - NEUROLOGIC Neurologic: grossly normal, no motor/sensory deficits - PSYCHIATRIC Psych/Mental Status: oriented x 3 Progress - PLAN OF CARE/RESULTS Progress/Plan/Lab Results: Vital Signs - 8 hr 04/26/17 12:48 04/26/17 13:26 04/26/17 15:46 Temperature 97.9 F Pulse Rate 74 66 66 Respiratory Rate 19 24 12 Blood Pressure 149/89 149/89 183/86 O2 Sat by Pulse Oximetry 95 95 97 Laboratory Results - last 24 hr 04/26/17 04/26/17 04/26/17 12:44 12:44 12:44 WBC 8.98 RBC 4.66 Hgb 13.9 Hct 43.2 MCV 92.7 MCH 29.8 MCHC 32.2 L RDW Std Deviation 14.1 Plt Count 368 MPV 10.0 Immature Gran % (Auto) 0.0 Neut % (Auto) 64.5 Lymph % (Auto) 25.6 Mccreary % (Auto) 7.2 Eos % (Auto) 2.0 Baso % (Auto) 0.7 Immature Gran # (Auto) 0.00 Neut # (Auto) 5.79 Lymph # (Auto) 2.30 Mccreary # (Auto) 0.65 H Eos # (Auto) 0.18 Baso # (Auto) 0.06 PT INR PTT (Actin FS) D-Dimer 0.82 H Sodium 136 Potassium 4.3 Chloride 97 L Carbon Dioxide 27 Anion Gap 12 BUN 11 Creatinine 0.7 Estimated GFR/1.73 m2 > 60 BUN/Creatinine Ratio 16 Glucose 77 Calculated Osmolality 270 Calcium 9.4 Magnesium 2.1 Total Bilirubin 0.21 AST 29 ALT 27 Alkaline Phosphatase 131 H Creatine Kinase 87 Troponin T Tgy-A-Swsccuhnjif Pept Total Protein 7.7 Albumin 4.1 Globulin 3.6 Albumin/Globulin Ratio 1.1 04/26/17 04/26/17 04/26/17 12:44 12:44 12:44 WBC RBC Hgb Hct MCV MCH MCHC RDW Std Deviation Plt Count MPV Immature Gran % (Auto) Neut % (Auto) Lymph % (Auto) Mccreary % (Auto) Eos % (Auto) Baso % (Auto) Immature Gran # (Auto) Neut # (Auto) Lymph # (Auto) Mccreary # (Auto) Eos # (Auto) Baso # (Auto) PT 10.3 INR 0.98 PTT (Actin FS) 27.8 D-Dimer Sodium Potassium Chloride Carbon Dioxide Anion Gap BUN Creatinine Estimated GFR/1.73 m2 BUN/Creatinine Ratio Glucose Calculated Osmolality Calcium Magnesium Total Bilirubin AST ALT Alkaline Phosphatase Creatine Kinase Troponin T 0.024 Bpt-L-Qpliltwdomm Pept 322 Total Protein Albumin Globulin Albumin/Globulin Ratio 04/26/17 15:44 WBC RBC Hgb Hct MCV MCH MCHC RDW Std Deviation Plt Count MPV Immature Gran % (Auto) Neut % (Auto) Lymph % (Auto) Mccreary % (Auto) Eos % (Auto) Baso % (Auto) Immature Gran # (Auto) Neut # (Auto) Lymph # (Auto) Mccreary # (Auto) Eos # (Auto) Baso # (Auto) PT INR PTT (Actin FS) D-Dimer Sodium Potassium Chloride Carbon Dioxide Anion Gap BUN Creatinine Estimated GFR/1.73 m2 BUN/Creatinine Ratio Glucose Calculated Osmolality Calcium Magnesium Total Bilirubin AST ALT Alkaline Phosphatase Creatine Kinase 217 H Troponin T Yjc-F-Wkbpnhbmmnm Pept Total Protein Albumin Globulin Albumin/Globulin Ratio Orders Category Date Time Status Cardiac Monitoring DIRECTED Care 04/26/17 12:39 Active Saline Loc NOW Care 04/26/17 12:39 Active ANGIOGRAM/PULMONARY ARTERIES [CT] Stat Exams 04/26/17 13:22 Completed CHEST-2 VIEWS [RAD] Stat Exams 04/26/17 12:39 Completed CBC WITH ELECTRONIC DIFF [HEME] Stat Lab 04/26/17 12:44 Completed CK PROFILE [SP CHEM] Stat Lab 04/26/17 12:44 Completed CK TOTAL [CHEM] Stat Lab 04/26/17 15:44 Completed COMPREHENSIVE METABOLIC PANEL [CHEM] Stat Lab 04/26/17 12:44 Completed D-DIMER [CHEM] Stat Lab 04/26/17 12:44 Completed MAGNESIUM [CHEM] Stat Lab 04/26/17 12:44 Completed PRO B-NATRIURETIC PEPTIDE Stat Lab 04/26/17 12:44 Completed PROTIME WITH INR [COAG] Stat Lab 04/26/17 12:44 Completed PTT [COAG] Stat Lab 04/26/17 12:44 Completed TROPONIN T Stat Lab 04/26/17 12:44 Completed TROPONIN T Stat Lab 04/26/17 15:44 Received Aspirin Med 04/26/17 12:38 Discontinued 325 mg PO STAT STA EKG [EKG] Stat Ther 04/26/17 12:39 Ordered Plan: EKG, LABS , MONITOR PT pt pain free. dw family findings on ct they state they are aware of the aneurysm agree with plan for admi Result Diagrams: 04/26/17 12:44 04/26/17 12:44 - REASSESSMENT Reassessment #1 Time Reassessed: 14:40 Status: unchanged (Pt made aware of admission. Pt verbally understands.) - XRAY 1 XRAY: Bilateral XRAY Study: Chest Impression: Normal XRAY Interpretation: no evidence of acute disease - Dr. Vergara(radiologist) - CT/MRI 1 CT Study: Angiogram Impression: Normal (1.Prominet hiatal hernia 2.no evidence of pulmonary embolism 3.at least mild cardiomegaly 4.mild subsegmental atelectasis at the lung bases. 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.) CT Results: see impression - (radiologist) - CONSULTS/PCP/HOSPITALIST Notification #1 *Consult/PCP/Hospitalist*: (hospitalist) Time Discussed: 14:39 Consult Disposition: Admit Departure - Departure Date of Disposition Decision: 04/26/17 Time of Disposition Decision: 14:23 DIAGNOSIS: Acute coronary syndrome Disposition: ADMITTED INPATIENT 09 Certified Medical Emergency: Emergent Condition: Stable Referrals and Follow-Ups: Mima Maynard CRNP [Primary Care Provider] - - Critical Care Note This patient required my direct & personal management of CC.: No This chart was documented by the indicated scribe, (Breana Draper Scribe) and accurately reflects the services I performed and decisions made by me, Mirtha Boucher MD, as attested by the provider's signature.
--- NOTE | 2017-04-26 16:36 | ED EKG INTERP ---
This chart was entered by Breana Draper Scribe, acting as scribe for Mirtha Boucher MD. EKG Interpretation - EKG Time of EKG reading by physician:: 12:27 EKG Read and Signed by:: Mirtha Boucher EKG Interpretation (*Must complete 3 of following elements*): Abnormal Rate: 69 Rhythm: NSR Dexter: normal QRS: LVH (with QRS widening and repolarization abnormality) MS Interval: normal ST Wave: non-specific ST changes (prolonged) Prior EKG Comparison: changes noted Comments: v5 upright twave change from prior This chart was documented by the indicated scribe, (Breana Draper Scribe) and accurately reflects the services I performed and decisions made by Citlaly ken Tom-Meka M., MD, as attested by the provider's signature.
[2017-04-26] MEDS ORDERED: NITROGLYCERIN TOP SCH (17:34)
[2017-04-26] MEDS ORDERED: TYLENOL PO PRN (17:34)
[2017-04-26] MEDS ORDERED: ZOFRAN IV PRN (17:34)
[2017-04-26] MEDS ORDERED: NITROGLYCERIN SL PRN (17:34)
--- NOTE | 2017-04-26 17:42 | HISTORY AND PHYSICAL ---
HISTORY OF PRESENT ILLNESS: This is an 86-year-old who best I can tell, she has home health that comes out there. She checked her blood pressure, it was high, she was complaining of chest pain in her right shoulder. Blood pressure did not seem to be coming down, so they sent her to the emergency room. The patient cannot tell me whether the chest pain was squeezing but it was on the right side and it seemed to linger on. She cannot tell me if it is throbbing in nature. Her pressure seems to be better at the present time. Initial enzymes were negative. EKG was unremarkable. PAST MEDICAL HISTORY: 1. History of stroke x4. 2. Hypertension. 3. Hypothyroidism. 4. History of bilateral pelvic fracture. PAST SURGICAL HISTORY: 1. Thyroidectomy. 2. Hysterectomy. 3. Rotator cuff repair. This is an 86-year-old with a past medical history of recurrent stroke brought to the emergency room last time on 01/23/2017 because of altered mental status and family suspecting stroke. This time she was brought here because of chest pain. There is no change that was reported of neurologic change, no change in her speech, her vision, just having some chest pain on the right side. SOCIAL HISTORY: Continues to smoke apparently 1 pack a day. She has been strongly encouraged to stop. Family denies she drinks any alcohol or uses any illicit drugs. ALLERGIES: She is not allergic to any medication. FAMILY HISTORY: Noncontributory. REVIEW OF SYSTEMS: General: The family did not report any change in her weight, fever or chills. Lungs: They have not known about any respiratory change such as orthopnea or paroxysmal nocturnal dyspnea. She has not had episodes of chest pain. PHYSICAL EXAMINATION: GENERAL: She is awake and alert. She knows where she is and knows who she is. She is not really sure why she is here. I am not sure she understands the plan of care. VITAL SIGNS: Temperature 97.9 degrees, pulse 66, respirations 12, blood pressure 183/86. HEENT: The pupils are equal, round, CVP less than 6 cm. NECK/SHOULDERS: I do not really cannot reproduce any tenderness or pain on palpation of her sternal costal or anterior chest or with motion of her neck or shoulders LUNGS: Clear in all lung romero. CARDIOVASCULAR: Regular rate without murmur or S3. ABDOMEN: Soft. WEIGHT: 130 pounds. HEIGHT: 5 feet 5 inches, O2 saturation 97%. SKIN: Warm and dry. LABORATORY: White count 8980, hematocrit 43, platelet count 368,000. Sodium 136, potassium 4.3, chloride 97, bicarb 27, BUN 11, creatinine 0.7, AST 29, ALT is 27, alkaline phos 131, troponin 0.240. Initially the CPK was 217. ProTime 10.3, PTT was 27.8. IMAGING: Chest x-ray: No evidence of acute disease. Pulmonary arteriogram: Prominent hiatal hernia. No evidence of pulmonary embolism. At least mild cardiomegaly, mild subsegmental atelectasis in lung bases. 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 ASSESSMENT AND PLAN: 1. Suspect this is noncardiac chest pain. However, she has troponins elevated and we really cannot get a clear history. I think we need to make sure there is not an ongoing cardiac ischemia. We will check serial cardiac enzymes and electrocardiogram, Ask Cardiology to help decipher. 2. She has a hiatal hernia. She has not given much report of change in and acid reflux symptoms. 3. History of hypertension. 4. History is cerebrovascular accident x4 apparently. No new neurologic changes. 5. History of bilateral pelvic fracture in the past. 6. She has had a thyroidectomy and at least partial partial thyroidectomy, has had hysterectomy and rotator cuff repair. cc: Prasad Fontanez MD
[2017-04-26] MEDS ORDERED: LIPITOR PO SCH (21:00)
[2017-04-26] MEDS ORDERED: LOVENOX SUBQ ONE (21:46)
[2017-04-26] MEDS ORDERED: MORPHINE IV PRN (22:25)
[2017-04-26 22:47] VITALS: BP 152/91
--- NOTE | 2017-04-27 06:36 | DISCHARGE SUMMARY ---
ADMISSION DATE: 04/26/2017 DISCHARGE DATE: 04/26/2017 DISPOSITION: She will be transferred to [facility]. The accepting physician will be Dr. Brown. PRIMARY CARE PROVIDER: KARLA Cleveland, in [place], [place]. HISTORY OF PRESENT ILLNESS: The patient presented on 04/26/2017 with chest pain to the emergency room around noon. EKGs and cardiac enzymes were ordered. The original EKG showed some ST depression, likely related to ischemia. Original cardiac enzymes were a CK of 87 and a troponin of 0.024. Over the next several hours, they basically all quadrupled. On last recheck, the CK was 4O2 and the troponin was 0.526. The transfer center at [facility] was called at 2104 hours after speaking to [address]. Leon, the on-call process engineering intern for [facility], who recommended having her transferred to [facility] for treatment of a non-STEMI. The transfer center was spoken to, who put us in contact with Dr. Brown, who recommended 1 mg/kg of Lovenox, and he did accept the patient for transfer to [facility], so she will be transferred when available. PAST MEDICAL HISTORY: 1. History of strokes x4. 2. Hypertension. 3. Hypothyroidism. 4. History of bilateral pelvic fracture. PAST SURGICAL HISTORY: 1. Thyroidectomy. 2. Hysterectomy. 3. Rotator cuff repair. SOCIAL HISTORY: She has smoked for many years around 1 pack per day. She has been encouraged to stop. No alcohol, no illicit drug use or abuse. HOSPITAL COURSE: As noted above, she has had CVAs, but no apparent cardiac history. Dr. Leon, the on-call process engineering intern for [facility], was consulted. After reviewing the EKGs, as well as the cardiac enzymes, we were recommended to transfer the patient. She had received aspirin en route and then takes Plavix daily as well. After speaking to Dr. Brown at [facility], a 1 mg/kg dose of Lovenox will be ordered. The patient also had an elevated D-dimer, and a CT of the thorax was obtained, which ruled out pulmonary embolism. As noted, she will be transferred to [facility] under the care of Dr. Brown. DISCHARGE MEDICATIONS: Will be the same as admission medications from the H and P that is in the system, dictated by Dr. Prasad Fontanez. The patient was re-evaluated. She denies chest pain at this time. She has had a complaint of low back pain. Current vital signs: Heart rate 65, blood pressure 155/83, respirations 14, oxygen saturation 95% on room air. I attempted to contact her family; however, there was no call at the number. The plan has been gone over with the patient, and she states that she does understand. Dictated by KARLA Valadez for Marlon Herron MD cc: KARLA Valadez MD Enrique Velasquez, MD Luis N. Villanueva, MD Allen J. Schmidt, MD Lori Henry, CRNP
--- NOTE | 2017-04-27 06:38 | EKG Report ---
Test Performed on : 04/26/2017 12:27:02 PM Test Reason : CP/Re-Ordered Blood Pressure : / mmHG Vent. Rate : 069 BPM Atrial Rate : 069 BPM P-R Int : 128 ms QRS Dur : 118 ms QT Int : 458 ms P-R-T Axes : 033 -20 109 degrees QTc Int : 490 ms Normal sinus rhythm. Left ventricular hypertrophy with QRS widening and repolarization abnormality Prolonged QT Abnormal ECG When compared with ECG of 23-JAN-2017 18:30, Left bundle branch block is no longer present Unconfirmed Result
[2017-04-27] MEDS ORDERED: SYNTHROID PO SCH (07:00)
[2017-04-27] MEDS ORDERED: PRILOSEC PO SCH (07:00)
--- NOTE | 2017-04-27 07:15 | EKG Report ---
Test Performed on : 04/26/2017 7:07:16 PM Test Reason : No Order in [facility] Blood Pressure : / mmHG Vent. Rate : 068 BPM Atrial Rate : 068 BPM P-R Int : 132 ms QRS Dur : 120 ms QT Int : 454 ms P-R-T Axes : 051 -02 181 degrees QTc Int : 482 ms Normal sinus rhythm. Nonspecific intraventricular conduction delay ST \T\ T wave abnormality, consider inferior ischemia ST \T\ T wave abnormality, consider anterolateral ischemia Abnormal ECG When compared with ECG of 26-APR-2017 12:27, (Unconfirmed) T wave inversion now evident in Inferior leads T wave inversion more evident in Anterolateral leads Unconfirmed Result
--- NOTE | 2017-04-27 07:15 | EKG Report ---
Test Performed on : 04/26/2017 10:11:38 PM Test Reason : No Order in [facility] Blood Pressure : / mmHG Vent. Rate : 064 BPM Atrial Rate : 064 BPM P-R Int : 136 ms QRS Dur : 118 ms QT Int : 448 ms P-R-T Axes : 047 -05 187 degrees QTc Int : 462 ms Normal sinus rhythm. Nonspecific intraventricular conduction delay ST \T\ T wave abnormality, consider inferior ischemia ST \T\ T wave abnormality, consider anterolateral ischemia Abnormal ECG When compared with ECG of 26-APR-2017 19:07, (Unconfirmed) No significant change was found Unconfirmed Result
[2017-04-27] MEDS ORDERED: PAXIL PO SCH (09:00)
[2017-04-27] MEDS ORDERED: APRESOLINE PO SCH (09:00)
[2017-04-27] MEDS ORDERED: PLAVIX PO SCH (09:00)
[2017-04-27] MEDS ORDERED: ASPIRIN PO SCH (09:00)
[2017-04-27] MEDS ORDERED: METAMUCIL PO SCH ×2 (09:00)
[2017-04-27] MEDS ORDERED: PRINIVIL PO SCH (09:00)
== END 2017-04-26 23:00 | disposition short-term general hospital (02) ==
LOC: SUPCPDRO → ED 12:30 → 3N 17:31 → EDIPHOLD 17:33
PROVIDERS: ATTEND Emergency Medicine